=== PATIENT | female | born 1970 | race African-American/Black ===

== ENCOUNTER 2018-01-29 05:43 | Emergency (ER) | payer SELFPAY ==
[2018-01-29 06:45] LABS: Absolute Lymphocytes (CBC) 1.5 K/uL (0.7-4.9); Absolute Monocytes 1.1 K/uL (0.1-1.3); Absolute Neutrophil 8.1 K/uL (1.8-8.0); Basophils % 0.5 % (0-1.3); Eosinophils % 1.7 % (0-4.4); Hematocrit 34.4 % (36.0-45.0); MCH 31.4 pg (27.0-35.0); MCV 92.4 fL (80-100); MPV 8.6 fL (7.6-11.3); Monocytes % 10.3 % (3.3-12.3); RBC Red Blood Cell Count 3.73 M/uL (3.86-4.86)
[2018-01-29 07:11] LABS: Potassium 3.8 mEq/L (3.6-5.0)
[2018-01-29 07:17] LABS: Albumin 3.8 g/dL (3.2-5.5); Bilirubin Direct 0.1 mg/dL (0-0.2); Bilirubin Total 0.4 mg/dL (0.3-1.2); Protein, Total 7.2 g/dL (6.0-8.3)
--- NOTE | 2018-01-29 07:31 | EDPHYS ---
Physician Documentation [facility] Name: Shanelle Goldstein Age: 47 yrs Sex: Female : 1970 Arrival Date: 01/29/2018 Time: 05:49 Bed 15 Private MD: ED Physician Natalio Membreno HPI: 01/29 06:22 This 47 yrs old Black Female presents to ER via Ambulatory with complaints of Rash, cp Weakness. 06:22 The patient's rash thought to be caused by an unknown cause. cp 06:22 The rash is located on the chest and neck. The rash can be described as itchy. cp 06:22 Onset: The symptoms/episode began/occurred 1 week(s) ago. cp 06:22 Associated signs and symptoms: Pertinent positives: fatigue, dizziness since yesterday, cp Pertinent negatives: difficulty breathing, fever, chest pain, abdominal pain. Treatment given at home: none. 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 - Social history:: Smoking status: Patient uses tobacco products, denies chronic smoking, but will smoke occasionally. ROS: 06:30 Constitutional: Positive for fatigue, Negative for body aches, chills, fever, poor PO cp intake. 06:30 Eyes: Negative for injury, pain, redness, and discharge. cp 06:30 ENT: Negative for drainage from ear(s), ear pain, sore throat, difficulty swallowing, difficulty handling secretions. 06:30 Cardiovascular: Negative for chest pain, edema, palpitations. 06:30 Respiratory: Positive for shortness of breath, Negative for cough, wheezing. 06:30 Abdomen/GI: Negative for abdominal pain, nausea, vomiting, and diarrhea, constipation, black/tarry stool, rectal bleeding. 06:30 Skin: Positive for rash, of the chest and neck. 06:30 Neuro: Positive for general weakness, Negative for altered mental status, dizziness, headache, syncope, near syncope. 06:30 All other systems are negative. Exam: 06:35 Constitutional: The patient appears in no acute distress, alert, non-diaphoretic, cp non-toxic, well developed, well nourished. 06:35 Head/Face: Normocephalic, atraumatic. Eyes: Pupils equal round and reactive to light, cp extra-ocular motions intact. Lids and lashes normal. Conjunctiva and sclera are non-icteric and not injected. Cornea within normal limits. Periorbital areas with no swelling, redness, or edema. ENT: Nares patent. No nasal discharge, no septal abnormalities noted. Tympanic membranes are normal and external auditory canals are clear. Oropharynx with no redness, swelling, or masses, exudates, or evidence of obstruction, uvula midline. Mucous membranes moist. 06:35 Chest/axilla: Palpation: is normal, no crepitus, no tenderness. 06:35 Cardiovascular: Rate: normal, Rhythm: regular, Edema: is not appreciated, JVD: is not appreciated. 06:35 Respiratory: the patient does not display signs of respiratory distress, Respirations: normal, no use of accessory muscles, no retractions, labored breathing, is not present, Breath sounds: are clear throughout, no decreased breath sounds, no stridor, no wheezing. 06:35 Abdomen/GI: Inspection: abdomen appears normal, Palpation: abdomen is soft and non-tender, in all quadrants. 06:35 Skin: rash can be described as excoriated, raised, urticarial, on the chest and neck. 06:35 Neuro: Orientation: to person, place \T\ time. Mentation: lucid, able to follow commands, Cerebellar function: is grossly normal, Motor: moves all fours, strength is normal, Sensation: no obvious gross deficits. 06:44 ECG was reviewed by the Attending Physician. cp Vital Signs: 06:03 BP 143 / 90; Pulse 71; Resp 18; Temp 98.1(O); Pulse Ox 100% on R/A; Weight 74.84 kg; bs1 Height 5 ft. 7 in. (170.18 cm); Pain 0/10; 06:53 BP 139 / 98; bs1 07:43 BP 118 / 76; Pulse 67; Resp 15; Temp 97.8; Pulse Ox 99% on R/A; Pain 0/10; ch 06:03 Body Mass Index 25.84 (74.84 kg, 170.18 cm) bs1 MDM: 06:17 Patient medically screened. cp 06:30 Differential diagnosis: allergic reaction, contact dermatitis, anemia, cardiac cp arrythmia, electrolyte abnormality. 07:27 Data reviewed: vital signs, nurses notes, lab test result(s), EKG, and as a result, I cp will discharge patient. 07:28 Counseling: I had a detailed discussion with the patient and/or guardian regarding: the cp historical points, exam findings, and any diagnostic results supporting the discharge/admit diagnosis, lab results, the need for outpatient follow up, a family practitioner, to return to the emergency department if symptoms worsen or persist or if there are any questions or concerns that arise at home. 01/29 06:26 Order name: CBC with Diff; Complete Time: 07:06 cp 01/29 07:07 Interpretation: Normal except: WBC 11.1; RBC 3.73; HGB 11.7; HCT 34.4; RDW 16.6; LYM% cp 14.0; NEUT A 8.1. 01/29 06:26 Order name: LFT's; Complete Time: 07:27 cp 01/29 07:27 Interpretation: Within normal limits. cp 01/29 06:26 Order name: BMP; Complete Time: 07:27 cp 01/29 07:27 Interpretation: Normal except: NA 134; GFR 89. cp 01/29 06:47 Order name: Urine Dipstick--Ancillary (enter results) [facility] [place] 01/29 06:47 Order name: Urine --Ancillary (enter results) [facility] [place] 01/29 06:26 Order name: Urine Dipstick-Ancillary (obtain specimen); Complete Time: 06:44 cp 01/29 06:26 Order name: Urine Test (obtain specimen); Complete Time: 06:44 cp 01/29 06:26 Order name: EKG; Complete Time: 06:26 cp 01/29 06:26 Order name: EKG - Nurse/Tech; Complete Time: 06:44 cp EC:44 Rate is 67 beats/min. Rhythm is regular. VA interval is normal. QRS interval is normal. cp QT interval is normal. No ST changes noted. Interpreted by me. Administered Medications: 07:42 Drug: predniSONE 40 mg Route: PO; 07:42 Follow up: Response: No adverse reaction Disposition: 01/29/18 07:30 Discharged to Home. Impression: Allergic urticaria, Weakness - General. - Condition is Stable. - Discharge Instructions: Hives. - Prescriptions for Prednisone 20 mg Oral Tablet - take 2 tablet by ORAL route once daily for 5 days; 10 tablet. Triamcinolone Acetonide 0.5 % Topical Cream - apply 1 application by TOPICAL route 2 times per day As needed apply to areas of rash as directed; 30 gram. Zyrtec 10 mg Oral Tablet - take 1 tablet by ORAL route once daily As needed; 20 tablet. - Work release form, Medication Reconciliation Form, Thank You Letter, Antibiotic Education, Prescription Opioid Use form. - Follow up: Private Physician; When: 1 - 2 days; Reason: Recheck today's complaints. - Problem is new. - Symptoms are unchanged. Addendum: 02/02/2018 19:02 Co-signature as Attending Physician, Natalio werner Signatures: Dispatcher [employer] Marcia Hodges, RN RN Natalio Blunt MD MD pkl Dustin Paulson PA PA cp Salazar, Brittany, RN RN bs1 Corrections: (The following items were deleted from the chart) 01/29 07:49 07:30 01/29/2018 07:30 Discharged to Home. Impression: Allergic urticaria; Weakness - ch General. Condition is Stable. Forms are Medication Reconciliation Form, Thank You Letter, Antibiotic Education, Prescription Opioid Use. Follow up: Private Physician; When: 1 - 2 days; Reason: Recheck today's complaints. Problem is new. Symptoms are unchanged. cp
--- NOTE | 2018-01-29 07:31 | ER ---
Nurse's Notes [facility] Name: Shanelle Goldstein Age: 47 yrs Sex: Female : 1970 Arrival Date: 01/29/2018 Time: 05:49 Bed 15 Private MD: Diagnosis: Allergic urticaria;Weakness-General Presentation: 01/29 06:00 Presenting complaint: Patient states: "I have been feeling dizzy and fatigued since bs1 yesterday around 2pm and feeling short of breath, I have had this rash on my neck, face, back and stomach for about a week.". Transition of care: patient was not received from another setting of care. Initial Sepsis Screen: Does the patient meet any 2 criteria? No. Patient's initial sepsis screen is negative. Does the patient have a suspected source of infection? No. Patient's initial sepsis screen is negative. Care prior to arrival: None. 06:00 Method Of Arrival: Ambulatory bs1 06:00 Acuity: MOE 3 bs1 06:37 Onset of symptoms was January 28, 2018. 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 - Social history:: Smoking status: Patient uses tobacco products, denies chronic smoking, but will smoke occasionally. Screenin:04 Abuse screen: Denies threats or abuse. Denies injuries from another. Nutritional bs1 screening: No deficits noted. Tuberculosis screening: No symptoms or risk factors identified. Fall Risk None identified. Assessment: 06:07 General: Appears uncomfortable, ill, slender, Behavior is cooperative, anxious. bs1 General:. Pain: Denies pain. Neuro: Level of Consciousness is awake, alert, obeys commands, Oriented to person, place, time, situation, Appropriate for age Student Development Advisor are equal bilaterally Moves all extremities. Gait is steady, Speech is normal, Facial symmetry appears normal, Pupils are PERRLA, Intact Reports dizziness, Denies blurred vision difficulty swallowing, paresthesias numbness headache photophobia diplopia. Cardiovascular: Reports fatigue, shortness of breath, Denies chest pain, Heart tones S1 S2 present Capillary refill < 3 seconds Patient's skin is warm and dry. Respiratory: Airway is patent Trachea midline Respiratory effort is even, unlabored, Respiratory pattern is regular, symmetrical, Breath sounds are clear bilaterally. Respiratory: Reports shortness of breath at rest on exertion cough that is non-productive. GI: No deficits noted. No signs and/or symptoms were reported involving the gastrointestinal system. : No deficits noted. No signs and/or symptoms were reported regarding the genitourinary system. EENT: No deficits noted. No signs and/or symptoms were reported regarding the EENT system. Derm: Rash noted that is urticaria, generealized to face, neck, back, stomach. Musculoskeletal: Circulation, motion, and sensation intact. Capillary refill < 3 seconds, Range of motion: intact in all extremities. 07:42 Reassessment: Patient appears in no apparent distress at this time. Patient and/or ch family updated on plan of care and expected duration. Pain level reassessed. Patient is alert, oriented x 3, equal unlabored respirations, skin warm/dry/pink. Vital Signs: 06:03 BP 143 / 90; Pulse 71; Resp 18; Temp 98.1(O); Pulse Ox 100% on R/A; Weight 74.84 kg; bs1 Height 5 ft. 7 in. (170.18 cm); Pain 0/10; 06:53 BP 139 / 98; bs1 07:43 BP 118 / 76; Pulse 67; Resp 15; Temp 97.8; Pulse Ox 99% on R/A; Pain 0/10; ch 06:03 Body Mass Index 25.84 (74.84 kg, 170.18 cm) bs1 ED Course: 05:49 Patient arrived in ED. al2 06:00 Adrianne Goff, STEVEN is Primary Nurse. bs1 06:02 Triage completed. bs1 06:09 Patient has correct armband on for positive identification. Bed in low position. Call bs1 light in reach. Side rails up X 1. Pulse ox on. NIBP on. 06:10 No provider procedures requiring assistance completed. bs1 06:15 Dustin Paulson PA is PHCP. cp 06:15 Natalio Membreno MD is Attending Physician. cp 06:31 Inserted saline lock: 22 gauge in right antecubital area, using aseptic technique. bs1 06:52 Arm band placed on placed. EKG completed in triage. Results shown to MD. bs1 06:53 Warm blanket given. bs1 07:02 Report given to STEVEN Contreras. bs1 07:43 No apparent distress. Resting quietly. ch 07:43 IV discontinued, intact, bleeding controlled, No redness/swelling at site. Pressure ch dressing applied. Administered Medications: 07:42 Drug: predniSONE 40 mg Route: PO; 07:42 Follow up: Response: No adverse reaction ch Outcome: 07:30 Discharge ordered by MD. 07:43 Discharged to home ambulatory. 07:43 Condition: improved 07:43 Discharge instructions given to patient, Instructed on discharge instructions, follow up and referral plans. medication usage, Demonstrated understanding of instructions, follow-up care, medications, Prescriptions given X 3. 07:49 Patient left the ED. Signatures: Marcia Ocampo RN RN Dustin Paulson PA PA Adrianne Goff RN RN bs1 Mari Schilling
[2018-01-29] MEDS ORDERED: predniSONE 20 MG TAB ONE (07:37)
[2018-01-29 12:14] LABS: Urine Blood TRACE (NEG); Urine Glucose NEGATIVE (NEG); Urine Protein NEGATIVE (NEG); Urine pH 5.5 (5.0-7.0)
--- NOTE | 2018-01-29 14:38 | EKG ---
Test Date: 2018-01-29 Test Time: 06:38:10 Electrophonic Engineer: RAD MEASUREMENT RESULTS: Intervals: Rate: 67 RI: 152 QRSD: 78 QT: 384 QTc: 405 Monument: P: 54 RI: 152 QRS: 56 T: 55 INTERPRETIVE STATEMENTS: Normal sinus rhythm Normal ECG No previous ECG available for comparison Electronically Signed On 01-29-18 14:34:12 CDT by Nitish Fallon
== END 2018-01-29 07:49 | disposition home or self-care (01) ==
LOC: ER 05:43
DX: L50.0 Allergic urticaria (principal); R53.1 Weakness; I10 Essential (primary) hypertension; F41.9 Anxiety disorder, unspecified
CPT/HCPCS: 36415; 80048; 80076; 81003; 81025; 85025; 93005; 99284; J7512

== ENCOUNTER 2018-03-07 05:24 | Emergency (ER) | payer SELFPAY ==
[2018-03-07] MEDS ORDERED: predniSONE 20 MG TAB ONE (05:49)
[2018-03-07] MEDS ORDERED: DIPHENHYDRAMINE 25 MG TAB/CAP ONE (05:49)
[2018-03-07] MEDS ORDERED: FAMOTIDINE 20 MG TAB ONE (05:49)
--- NOTE | 2018-03-07 06:01 | ER ---
Nurse's Notes [facility] Name: Shanelle Goldstein Age: 47 yrs Sex: Female : 1970 Arrival Date: 03/07/2018 Time: 05:26 Bed 6 Private MD: Diagnosis: Urticaria Presentation: 03/07 05:34 Presenting complaint: Patient states: I woke up a couple hours ago with itching and tl2 bumps on my skin. Denies any new usage of lotions or soaps or exposure to grasses. Transition of care: patient was not received from another setting of care. Onset: The symptoms/episode began/occurred acutely, 2 hour(s) ago. Anaphylaxis evaluation, no signs or symptoms of anaphylaxis were noted. Onset of symptoms was March 07, 2018 at 03:30. Risk Assessment: Do you want to hurt yourself or someone else? Patient reports no desire to harm self or others. Initial Sepsis Screen: Does the patient meet any 2 criteria? No. Patient's initial sepsis screen is negative. Does the patient have a suspected source of infection? No. Patient's initial sepsis screen is negative. Care prior to arrival: None. 05:34 Method Of Arrival: Ambulatory tl2 05:34 Acuity: MOE 4 tl2 Triage Assessment: 05:36 General: Appears in no apparent distress. uncomfortable, Behavior is cooperative, tl2 appropriate for age, anxious. Pain: Complains of pain in skin. Neuro: Level of Consciousness is awake, alert, obeys commands, Oriented to person, place, time, situation. Cardiovascular: Denies chest pain. Respiratory: Airway is patent Respiratory effort is even, unlabored, Respiratory pattern is regular, symmetrical, Breath sounds are clear bilaterally. GI: No signs and/or symptoms were reported involving the gastrointestinal system. : No signs and/or symptoms were reported regarding the genitourinary system. Derm: Skin is normal, Rash noted that is itchy, red, raised, on right arm, left arm, right leg and left leg. 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 - Social history:: Smoking status: Patient uses tobacco products, smokes one-half pack cigarettes per day. - Ebola Screening: : No symptoms or risks identified at this time. - Family history:: not pertinent. Screenin:38 Abuse screen: Denies threats or abuse. Nutritional screening: No deficits noted. tl2 Tuberculosis screening: No symptoms or risk factors identified. Fall Risk None identified. Assessment: 05:38 General: see triage assessment. Respiratory: Airway is patent Respiratory effort is tl2 even, unlabored, Respiratory pattern is regular, symmetrical. 06:42 Reassessment: Patient appears in no apparent distress at this time. Patient and/or tl2 family updated on plan of care and expected duration. Pain level reassessed. Patient is alert, oriented x 3, equal unlabored respirations, skin warm/dry/pink. Pt verbalized understanding of discharge instructions, need for follow up and prescription usage Patient states feeling better. Vital Signs: 05:36 BP 145 / 97; Pulse 81; Resp 20; Temp 98.1(O); Pulse Ox 99% on R/A; Weight 72.57 kg; tl2 Height 5 ft. 7 in. (170.18 cm); Pain 6/10; 06:42 BP 139 / 91; Pulse 56; Resp 18; Pulse Ox 100% on R/A; tl2 05:36 Body Mass Index 25.06 (72.57 kg, 170.18 cm) tl2 ED Course: 05:26 Patient arrived in ED. es 05:30 Dustin Campbell MD is Attending Physician. cosmo 05:34 Julia Guzman, STEVEN is Primary Nurse. tl2 05:35 Triage completed. tl2 05:36 Arm band placed on right wrist. Patient placed in an exam room. tl2 05:38 Patient has correct armband on for positive identification. Placed in gown. Bed in low tl2 position. Call light in reach. Side rails up X 1. Adult w/ patient. 06:45 No provider procedures requiring assistance completed. Patient did not have IV access tl2 during this emergency room visit. Administered Medications: 05:52 Drug: Benadryl 50 mg Route: PO; tl2 06:45 Follow up: Response: No adverse reaction; Marked relief of symptoms tl2 05:52 Drug: Pepcid 40 mg Route: PO; tl2 06:45 Follow up: Response: No adverse reaction; Marked relief of symptoms tl2 05:52 Drug: predniSONE 60 mg Route: PO; tl2 06:45 Follow up: Response: No adverse reaction; Marked relief of symptoms tl2 Outcome: 06:00 Discharge ordered by MD. wilburn 06:45 Discharged to home ambulatory, with family. tl2 06:45 Condition: stable 06:45 Discharge instructions given to patient, family, Instructed on discharge instructions, follow up and referral plans. medication usage, Demonstrated understanding of instructions, follow-up care, medications, Prescriptions given X 3. 06:45 Patient left the ED. tl2 Signatures: Dustin Campbell MD MD cha Salyer, Edna es Knox, Taylor, RN RN tl2
--- NOTE | 2018-03-07 06:01 | EDPHYS ---
Physician Documentation [facility] Name: Shanelle Goldstein Age: 47 yrs Sex: Female : 1970 Arrival Date: 03/07/2018 Time: 05:26 Bed 6 Private MD: ED Physician Dustin Campbell HPI: 03/07 05:47 This 47 yrs old Black Female presents to ER via Ambulatory with complaints of Itching. cosmo 05:47 The patient presents with localized swelling, rash. Onset: The symptoms/episode cosmo began/occurred just prior to arrival, this morning. Associated signs and symptoms: The patient has no apparent associated signs or symptoms. Possible causes: The patient has no known obvious cause for the symptoms. diffuse, hives. At home the patient or guardian has treated the symptoms with Benadryl. Severity of symptoms: At their worst the symptoms were mild in the emergency department the symptoms are unchanged. The patient has not experienced similar symptoms in the past. 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 - Social history:: Smoking status: Patient uses tobacco products, smokes one-half pack cigarettes per day. - Ebola Screening: : No symptoms or risks identified at this time. - Family history:: not pertinent. ROS: 05:47 Constitutional: Negative for fever, chills, and weight loss, Eyes: Negative for injury, cosmo pain, redness, and discharge, ENT: Negative for injury, pain, and discharge, Neck: Negative for injury, pain, and swelling, Cardiovascular: Negative for chest pain, palpitations, and edema, Respiratory: Negative for shortness of breath, cough, wheezing, and pleuritic chest pain, Abdomen/GI: Negative for abdominal pain, nausea, vomiting, diarrhea, and constipation, Back: Negative for injury and pain, : Negative for injury, bleeding, discharge, and swelling, MS/Extremity: Negative for injury and deformity, Neuro: Negative for headache, weakness, numbness, tingling, and seizure, Psych: Negative for depression, anxiety, suicide ideation, homicidal ideation, and hallucinations, Allergy/Immunology: Negative for hives, rash, and allergies, Endocrine: Negative for neck swelling, polydipsia, polyuria, polyphagia, and marked weight changes. 05:47 Skin: Positive for erythema, rash, diffusely. Exam: 05:47 Constitutional: This is a well developed, well nourished patient who is awake, alert, cosmo and in no acute distress. Head/Face: Normocephalic, atraumatic. Eyes: Pupils equal round and reactive to light, extra-ocular motions intact. Lids and lashes normal. Conjunctiva and sclera are non-icteric and not injected. Cornea within normal limits. Periorbital areas with no swelling, redness, or edema. ENT: Nares patent. No nasal discharge, no septal abnormalities noted. Tympanic membranes are normal and external auditory canals are clear. Oropharynx with no redness, swelling, or masses, exudates, or evidence of obstruction, uvula midline. Mucous membranes moist. Neck: Trachea midline, no thyromegaly or masses palpated, and no cervical lymphadenopathy. Supple, full range of motion without nuchal rigidity, or vertebral point tenderness. No Meningismus. Chest/axilla: Normal chest wall appearance and motion. Nontender with no deformity. No lesions are appreciated. Cardiovascular: Regular rate and rhythm with a normal S1 and S2. No gallops, murmurs, or rubs. Normal PMI, no JVD. No pulse deficits. Respiratory: Lungs have equal breath sounds bilaterally, clear to auscultation and percussion. No rales, rhonchi or wheezes noted. No increased work of breathing, no retractions or nasal flaring. Abdomen/GI: Soft, non-tender, with normal bowel sounds. No distension or tympany. No guarding or rebound. No evidence of tenderness throughout. Back: No spinal tenderness. No costovertebral tenderness. Full range of motion. Pelvic Exam: Normal external genitalia. Speculum exam with closed cervical os, no discharge or bleeding noted. Bimanual exam with normal adnexa, no adnexal or cervical motion tenderness. Normal uterus. Female : Normal external genitalia. Skin: Warm, dry with normal turgor. Normal color with no rashes, no lesions, and no evidence of cellulitis. MS/ Extremity: Pulses equal, no cyanosis. Neurovascular intact. Full, normal range of motion. Neuro: Awake and alert, GCS 15, oriented to person, place, time, and situation. Cranial nerves II-XII grossly intact. Motor strength 5/5 in all extremities. Sensory grossly intact. Cerebellar exam normal. Normal gait. Vital Signs: 05:36 BP 145 / 97; Pulse 81; Resp 20; Temp 98.1(O); Pulse Ox 99% on R/A; Weight 72.57 kg; tl2 Height 5 ft. 7 in. (170.18 cm); Pain 6/10; 06:42 BP 139 / 91; Pulse 56; Resp 18; Pulse Ox 100% on R/A; tl2 05:36 Body Mass Index 25.06 (72.57 kg, 170.18 cm) tl2 MDM: 05:30 Patient medically screened. [facility] 05:47 Data reviewed: vital signs, nurses notes. [facility] Administered Medications: 05:52 Drug: Benadryl 50 mg Route: PO; tl2 06:45 Follow up: Response: No adverse reaction; Marked relief of symptoms tl2 05:52 Drug: Pepcid 40 mg Route: PO; tl2 06:45 Follow up: Response: No adverse reaction; Marked relief of symptoms tl2 05:52 Drug: predniSONE 60 mg Route: PO; tl2 06:45 Follow up: Response: No adverse reaction; Marked relief of symptoms tl2 Disposition: 03/07/18 06:00 Discharged to Home. Impression: Urticaria. - Condition is Stable. - Discharge Instructions: Allergies, Hives, Hives, Jydj-sr-Lyat. - Prescriptions for Benadryl 25 mg Oral Capsule - take 1 capsule by ORAL route every 6 hours As needed; 30 tablet. Pepcid 20 mg Oral Tablet - take 1 tablet by ORAL route every 12 hours for 10 days; 20 tablet. Prednisone 20 mg Oral Tablet - take 2 tablet by ORAL route once daily for 5 days; 10 tablet. - Medication Reconciliation Form, Thank You Letter, Antibiotic Education, Prescription Opioid Use, Work release form, Family Work Release form. - Follow up: Private Physician; When: 2 - 3 days; Reason: Recheck today's complaints, Continuance of care, Re-evaluation by your physician. - Problem is new. - Symptoms have improved. Signatures: Dustin Cmapbell MD MD cha Knox, Taylor RN RN tl2 Corrections: (The following items were deleted from the chart) 06:45 06:00 03/07/2018 06:00 Discharged to Home. Impression: Urticaria. Condition is Stable. tl2 Forms are Medication Reconciliation Form, Thank You Letter, Antibiotic Education, Prescription Opioid Use. Follow up: Private Physician; When: 2 - 3 days; Reason: Recheck today's complaints, Continuance of care, Re-evaluation by your physician. Problem is new. Symptoms have improved. cosmo
== END 2018-03-07 06:45 | disposition home or self-care (01) ==
LOC: ER 05:24
DX: L50.9 Urticaria, unspecified (principal); I10 Essential (primary) hypertension; F41.9 Anxiety disorder, unspecified; F17.210 Nicotine dependence, cigarettes, uncomplicated
CPT/HCPCS: 99283; J7512

== ENCOUNTER 2018-03-09 05:32 | Emergency (ER) | payer SELFPAY ==
[2018-03-09] MEDS ORDERED: DIPHENHYDRAMINE 50 MG/ML VIAL ONE (05:54)
[2018-03-09] MEDS ORDERED: METHYLPREDNISOLONE 125 MG INJ ONE (05:54)
--- NOTE | 2018-03-09 06:37 | ER ---
Nurse's Notes [facility] Name: Shanelle Goldstein Age: 47 yrs Sex: Female : 1970 Arrival Date: 03/09/2018 Time: 05:33 Bed 13 Private MD: Diagnosis: Urticaria, unspecified Presentation: 03/09 05:49 Presenting complaint: Patient states: "I am having this generalized itching all over my [facility] body. I don't know if it is an allergic reaction or what, but I haven't changed anything in my diet, and last time I was here with this a couple of days ago they said it was probably a food allergy.". Transition of care: patient was not received from another setting of care. Onset: The symptoms/episode began/occurred last night. Anaphylaxis evaluation, no signs or symptoms of anaphylaxis were noted. Onset of symptoms was March 08, 2018. Risk Assessment: Do you want to hurt yourself or someone else? Patient reports no desire to harm self or others. Initial Sepsis Screen: Does the patient meet any 2 criteria? No. Patient's initial sepsis screen is negative. Does the patient have a suspected source of infection? No. Patient's initial sepsis screen is negative. Care prior to arrival: None. 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 - Social history:: Smoking status: Patient uses tobacco products, smokes one-half pack cigarettes per day, Patient uses alcohol, only on a social basis. - Ebola Screening: : Patient negative for fever greater than or equal to 101.5 degrees Fahrenheit, and additional compatible Ebola Virus Disease symptoms. - Family history:: not pertinent. - Hospitalizations: : No recent hospitalization is reported. Screenin:01 Abuse screen: Denies threats or abuse. Nutritional screening: No deficits noted. jd3 Tuberculosis screening: No symptoms or risk factors identified. Fall Risk Gait- Normal/Bed Rest/Wheelchair (0 pts) Mental Status- Oriented to own ability (0 pts). Total Newby Fall Scale indicates No Risk (0-24 pts). Assessment: 05:57 General: Appears uncomfortable, Behavior is cooperative, appropriate for age, anxious. jd3 Pain: Complains of pain in back, abdomen, right arm, left arm, right leg and left leg Quality of pain is described as burning, stinging, Pain began 1 day ago. Is continuous. Neuro: Level of Consciousness is awake, alert, obeys commands, Oriented to person, place, time, situation. Cardiovascular: Heart tones S1 S2 present Capillary refill < 3 seconds Patient's skin is warm and dry. Respiratory: Airway is patent Respiratory effort is even, unlabored, Respiratory pattern is regular, symmetrical, Breath sounds are clear bilaterally. Denies shortness of breath. GI: Abdomen is round Bowel sounds present X 4 quads. Abd is soft and non tender X 4 quads. : No signs and/or symptoms were reported regarding the genitourinary system. EENT: No signs and/or symptoms were reported regarding the EENT system. Derm: Skin is intact, Skin is dry, Skin is normal, Skin temperature is warm Rash noted that is itchy, on generalized. Musculoskeletal: Circulation, motion, and sensation intact. Range of motion: intact in all extremities. 06:27 Reassessment: Patient appears in no apparent distress at this time. Patient and/or jd3 family updated on plan of care and expected duration. Pain level reassessed. Patient is alert, oriented x 3, equal unlabored respirations, skin warm/dry/pink. Patient states feeling better. Patient states symptoms have improved. 06:43 Reassessment: Patient appears in no apparent distress at this time. Patient and/or jd3 family updated on plan of care and expected duration. Pain level reassessed. Patient is alert, oriented x 3, equal unlabored respirations, skin warm/dry/pink. pt reported understanding of discharge instructions, even and steady gait upon discharge. Patient states feeling better. Patient states symptoms have improved. Vital Signs: 05:54 BP 128 / 95; Pulse 83; Resp 17 S; Temp 98.4(O); Pulse Ox 97% on R/A; Weight 72.57 kg jd3 (R); Height 5 ft. 7 in. (170.18 cm) (R); Pain 10/10; 06:28 BP 131 / 97; Pulse 72; Resp 18 S; Pulse Ox 99% on R/A; Pain 2/10; jd3 05:54 Body Mass Index 25.06 (72.57 kg, 170.18 cm) jd3 ED Course: 05:33 Patient arrived in ED. am2 05:40 Valentin Otto MD is Attending Physician. rn 05:48 Robert Garcia, STEVEN is Primary Nurse. jd3 05:53 Triage completed. jd3 05:56 Arm band placed on Patient placed in an exam room. jd3 06:01 Patient has correct armband on for positive identification. Bed in low position. Call jd3 light in reach. Side rails up X 1. 06:44 No provider procedures requiring assistance completed. Patient did not have IV access jd3 during this emergency room visit. Administered Medications: 05:57 Drug: SOLU-Medrol 125 mg Route: IM; Site: right gluteus; bs1 06:45 Follow up: Response: No adverse reaction; Marked relief of symptoms jd3 05:57 Drug: Benadryl 50 mg Route: IM; Site: right gluteus; bs1 06:45 Follow up: Response: No adverse reaction; Marked relief of symptoms jd3 Outcome: 06:36 Discharge ordered by . rn 06:44 Discharged to home ambulatory. jd3 06:44 Condition: stable 06:44 Discharge instructions given to patient, Instructed on discharge instructions, follow up and referral plans. medication usage, Demonstrated understanding of instructions, follow-up care, medications, Prescriptions given X 1. 06:46 Patient left the ED. jd3 Signatures: Valentin Otto MD MD rn Moreno, Amanda am2 Robert Garcia, RN RN jd3 Adrianne Goff RN RN bs1 Corrections: (The following items were deleted from the chart) 06:34 06:28 BP 131 / 97; Pulse 72bpm; Resp 18bpm; Spontaneous; Pulse Ox 99% RA; jd3 jd3 06:35 06:27 Reassessment: Patient appears in no apparent distress at this time. Patient jd3 and/or family updated on plan of care and expected duration. Pain level reassessed. Patient is alert, oriented x 3, equal unlabored respirations, skin warm/dry/pink. jd3
--- NOTE | 2018-03-09 06:37 | EDPHYS ---
Physician Documentation [facility] Name: Shanelle Goldstein Age: 47 yrs Sex: Female : 1970 Arrival Date: 03/09/2018 Time: 05:33 Bed 13 Private MD: ED Physician Valentin Otto HPI: 03/09 05:53 This 47 yrs old Black Female presents to ER via Ambulatory with complaints of Allergic rn Reaction. 05:53 The patient presents with itching, rash. Onset: The symptoms/episode began/occurred 3 rn day(s) ago. Associated signs and symptoms: Pertinent positives: hives. Severity of symptoms: At their worst the symptoms were moderate in the emergency department the symptoms are unchanged. The patient has not experienced similar symptoms in the past. The patient has been recently seen by a physician:. Seen here 2 days ago for same rash, states told allergic reaction, improved, almost went away completely, came back today with itching again and rash. No sob, no oral involvement. . 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 - Social history:: Smoking status: Patient uses tobacco products, smokes one-half pack cigarettes per day, Patient uses alcohol, only on a social basis. - Ebola Screening: : Patient negative for fever greater than or equal to 101.5 degrees Fahrenheit, and additional compatible Ebola Virus Disease symptoms. - Family history:: not pertinent. - Hospitalizations: : No recent hospitalization is reported. ROS: 05:53 Constitutional: Negative for fever, chills, and weight loss, Eyes: Negative for injury, rn pain, redness, and discharge, Cardiovascular: Negative for chest pain, palpitations, and edema, Respiratory: Negative for shortness of breath, cough, wheezing, and pleuritic chest pain, Abdomen/GI: Negative for abdominal pain, nausea, vomiting, diarrhea, and constipation, MS/Extremity: Negative for injury and deformity, Skin: + rash and itching Neuro: Negative for headache, weakness, numbness, tingling, and seizure. Exam: 05:53 Constitutional: This is a well developed, well nourished patient who is awake, alert, rn and in no acute distress. Head/Face: Normocephalic, atraumatic. Eyes: Pupils equal round and reactive to light, extra-ocular motions intact. Lids and lashes normal. Conjunctiva and sclera are non-icteric and not injected. Cornea within normal limits. Periorbital areas with no swelling, redness, or edema. ENT: no oral lesions Respiratory: Lungs have equal breath sounds bilaterally, clear to auscultation and percussion. No rales, rhonchi or wheezes noted. No increased work of breathing, no retractions or nasal flaring. Skin: + diffuse urticaria and excoriations, no sloughing, no bullae MS/ Extremity: Pulses equal, no cyanosis. Neurovascular intact. Full, normal range of motion. Equal circumference. Neuro: Awake and alert, GCS 15, oriented to person, place, time, and situation. Cranial nerves II-XII grossly intact. Motor strength 5/5 in all extremities. Sensory grossly intact. Cerebellar exam normal. Normal gait. Vital Signs: 05:54 BP 128 / 95; Pulse 83; Resp 17 S; Temp 98.4(O); Pulse Ox 97% on R/A; Weight 72.57 kg jd3 (R); Height 5 ft. 7 in. (170.18 cm) (R); Pain 10/10; 06:28 BP 131 / 97; Pulse 72; Resp 18 S; Pulse Ox 99% on R/A; Pain 2/10; jd3 05:54 Body Mass Index 25.06 (72.57 kg, 170.18 cm) jd3 MDM: 05:40 Patient medically screened. rn 06:36 Differential diagnosis: urticaria. Data reviewed: vital signs, nurses notes, and as a rn result, I will discharge patient. Counseling: I had a detailed discussion with the patient and/or guardian regarding: the historical points, exam findings, and any diagnostic results supporting the discharge/admit diagnosis, the need for outpatient follow up, to return to the emergency department if symptoms worsen or persist or if there are any questions or concerns that arise at home. Response to treatment: the patient's symptoms have markedly improved after treatment, and as a result, I will discharge patient. Special discussion: I discussed with the patient/guardian in detail that at this point there is no indication for admission to the hospital. It is understood, however, that if the symptoms persist or worsen the patient needs to return immediately for re-evaluation. Based on the history and exam findings, there is no indication for further emergent testing or inpatient evaluation. I discussed with the patient/guardian the need to see the engine lathe tender for further evaluation of the symptoms. Administered Medications: 05:57 Drug: SOLU-Medrol 125 mg Route: IM; Site: right gluteus; bs1 06:45 Follow up: Response: No adverse reaction; Marked relief of symptoms jd3 05:57 Drug: Benadryl 50 mg Route: IM; Site: right gluteus; bs1 06:45 Follow up: Response: No adverse reaction; Marked relief of symptoms jd3 Disposition: 03/09/18 06:36 Discharged to Home. Impression: Urticaria, unspecified. - Condition is Stable. - Discharge Instructions: Hives. - Prescriptions for Hydroxyzine HCl 50 mg Oral Tablet - take 1 tablet by ORAL route every 8 hours As needed; 20 tablet. - Medication Reconciliation Form, Thank You Letter, Antibiotic Education, Prescription Opioid Use, Work release form form. - Follow up: Private Physician; When: As needed; Reason: Recheck today's complaints, Re-evaluation by your physician. - Problem is new. - Symptoms have improved. Signatures: Valentin Otto MD MD rn Davies, Jonathon, RN RN jd3 Adrianne Goff RN RN bs1 Corrections: (The following items were deleted from the chart) 06:46 06:36 03/09/2018 06:36 Discharged to Home. Impression: Urticaria, unspecified. jd3 Condition is Stable. Forms are Medication Reconciliation Form, Thank You Letter, Antibiotic Education, Prescription Opioid Use. Follow up: Private Physician; When: As needed; Reason: Recheck today's complaints, Re-evaluation by your physician. Problem is new. Symptoms have improved. rn
== END 2018-03-09 06:46 | disposition home or self-care (01) ==
LOC: ER 05:32
DX: L50.9 Urticaria, unspecified (principal); F17.210 Nicotine dependence, cigarettes, uncomplicated
CPT/HCPCS: 96372; 99283; J2930

== ENCOUNTER 2018-03-18 20:47 | Emergency (ER) | payer SELFPAY ==
--- NOTE | 2018-03-18 21:21 | EDPHYS ---
Physician Documentation [facility] Name: Shanelle Goldstein Age: 47 yrs Sex: Female : 1970 Arrival Date: 03/18/2018 Time: 20:47 Bed 14 Private MD: ED Physician Dustin Campbell HPI: 03/18 21:11 This 47 yrs old Black Female presents to ER via Ambulatory with complaints of Rash - cosmo Burning-Pain. 21:11 The patient's rash thought to be caused by allergies, Dermatitis. The rash is located cosmo on the body diffusely. The rash can be described as erythematous, raised. Onset: The symptoms/episode began/occurred just prior to arrival. Associated signs and symptoms: Pertinent positives: burning sensation. Severity of symptoms: At their worst the symptoms were mild in the emergency department the symptoms are unchanged. 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 - Social history:: Smoking status: Patient uses tobacco products, smokes one-half pack cigarettes per day. - Ebola Screening: : No symptoms or risks identified at this time. - Family history:: not pertinent. ROS: 21:11 Constitutional: Negative for fever, chills, and weight loss, Eyes: Negative for injury, cosmo pain, redness, and discharge, ENT: Negative for injury, pain, and discharge, Neck: Negative for injury, pain, and swelling, Cardiovascular: Negative for chest pain, palpitations, and edema, Respiratory: Negative for shortness of breath, cough, wheezing, and pleuritic chest pain, Abdomen/GI: Negative for abdominal pain, nausea, vomiting, diarrhea, and constipation, Back: Negative for injury and pain, : Negative for injury, bleeding, discharge, and swelling, MS/Extremity: Negative for injury and deformity, Neuro: Negative for headache, weakness, numbness, tingling, and seizure, Psych: Negative for depression, anxiety, suicide ideation, homicidal ideation, and hallucinations, Allergy/Immunology: Negative for hives, rash, and allergies, Endocrine: Negative for neck swelling, polydipsia, polyuria, polyphagia, and marked weight changes, Hematologic/Lymphatic: Negative for swollen nodes, abnormal bleeding, and unusual bruising. 21:11 Skin: Positive for rash, diffusely. Exam: 21:11 Constitutional: This is a well developed, well nourished patient who is awake, alert, cosmo and in no acute distress. Head/Face: Normocephalic, atraumatic. Eyes: Pupils equal round and reactive to light, extra-ocular motions intact. Lids and lashes normal. Conjunctiva and sclera are non-icteric and not injected. Cornea within normal limits. Periorbital areas with no swelling, redness, or edema. ENT: Nares patent. No nasal discharge, no septal abnormalities noted. Tympanic membranes are normal and external auditory canals are clear. Oropharynx with no redness, swelling, or masses, exudates, or evidence of obstruction, uvula midline. Mucous membranes moist. Neck: Trachea midline, no thyromegaly or masses palpated, and no cervical lymphadenopathy. Supple, full range of motion without nuchal rigidity, or vertebral point tenderness. No Meningismus. Chest/axilla: Normal chest wall appearance and motion. Nontender with no deformity. No lesions are appreciated. Cardiovascular: Regular rate and rhythm with a normal S1 and S2. No gallops, murmurs, or rubs. Normal PMI, no JVD. No pulse deficits. Respiratory: Lungs have equal breath sounds bilaterally, clear to auscultation and percussion. No rales, rhonchi or wheezes noted. No increased work of breathing, no retractions or nasal flaring. Abdomen/GI: Soft, non-tender, with normal bowel sounds. No distension or tympany. No guarding or rebound. No evidence of tenderness throughout. Back: No spinal tenderness. No costovertebral tenderness. Full range of motion. MS/ Extremity: Pulses equal, no cyanosis. Neurovascular intact. Full, normal range of motion. Neuro: Awake and alert, GCS 15, oriented to person, place, time, and situation. Cranial nerves II-XII grossly intact. Motor strength 5/5 in all extremities. Sensory grossly intact. Cerebellar exam normal. Normal gait. Psych: Awake, alert, with orientation to person, place and time. Behavior, mood, and affect are within normal limits. 21:11 Skin: 21:11 Skin: urticaria. [facility] Vital Signs: 20:54 BP 137 / 86; Pulse 82; Resp 18; Temp 97.9; Pulse Ox 99% on R/A; Weight 81.65 kg (R); ak1 Height 5 ft. 7 in. (170.18 cm) (R); Pain 10/10; 20:54 Body Mass Index 28.19 (81.65 kg, 170.18 cm) ak1 MDM: 20:49 Patient medically screened. [facility] Administered Medications: 21:26 Drug: Pepcid 40 mg Route: PO; bs1 21:32 Follow up: Response: No adverse reaction bs1 21:26 Drug: predniSONE 60 mg Route: PO; bs1 21:32 Follow up: Response: No adverse reaction 1 21:29 Not Given (Per order from Dr Campbell not to give due to patient smelling of ETOH and bs1 driving herself here with no other ride available.): Benadryl 50 mg PO once Disposition: 03/18/18 21:20 Discharged to Home. Impression: Urticaria. - Condition is Stable. - Discharge Instructions: Allergies, Hives, Alcohol Abuse and Nutrition, Hives, Olkk-pc-Buse, How Much is Too Much Alcohol, Sudx-nw-Enhq. - Prescriptions for Benadryl 25 mg Oral Capsule - take 1 capsule by ORAL route every 6 hours As needed; 30 tablet. Pepcid 20 mg Oral Tablet - take 1 tablet by ORAL route every 12 hours for 10 days; 20 tablet. Prednisone 20 mg Oral Tablet - take 2 tablet by ORAL route once daily for 5 days; 10 tablet. - Medication Reconciliation Form, Thank You Letter, Antibiotic Education, Prescription Opioid Use form. - Follow up: Private Physician; When: 2 - 3 days; Reason: Recheck today's complaints, Continuance of care, Re-evaluation by your physician. - Problem is new. - Symptoms have improved. Signatures: Dustin Campbell MD MD cha Krenek, Amber RN RN ak1 Adrianne Goff RN RN bs1 Corrections: (The following items were deleted from the chart) 21:32 21:20 03/18/2018 21:20 Discharged to Home. Impression: Urticaria. Condition is Stable. bs1 Forms are Medication Reconciliation Form, Thank You Letter, Antibiotic Education, Prescription Opioid Use. Follow up: Private Physician; When: 2 - 3 days; Reason: Recheck today's complaints, Continuance of care, Re-evaluation by your physician. Problem is new. Symptoms have improved. cosmo
--- NOTE | 2018-03-18 21:21 | ER ---
Nurse's Notes [facility] Name: Shanelle Goldstein Age: 47 yrs Sex: Female : 1970 Arrival Date: 03/18/2018 Time: 20:47 Bed 14 Private MD: Diagnosis: Urticaria Presentation: 03/18 20:55 Presenting complaint: Patient states: burning pain with rash "all over body" since 1 ak1 hours [employer]. pt seen in the ER this week for same s/s. Transition of care: patient was not received from another setting of care. Onset of symptoms was March 18, 2018. Risk Assessment: Do you want to hurt yourself or someone else? Patient reports no desire to harm self or others. Initial Sepsis Screen: Does the patient meet any 2 criteria? No. Patient's initial sepsis screen is negative. Does the patient have a suspected source of infection? No. Patient's initial sepsis screen is negative. Note no resp distress noted. Care prior to arrival: None. 20:55 Method Of Arrival: Ambulatory ak1 20:55 Acuity: MOE 4 ak1 Triage Assessment: 20:58 General: Appears in no apparent distress. Behavior is cooperative, Smells of alcohol. 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 - Social history:: Smoking status: Patient uses tobacco products, smokes one-half pack cigarettes per day. - Ebola Screening: : No symptoms or risks identified at this time. - Family history:: not pertinent. Screenin:57 Abuse screen: Denies threats or abuse. Denies injuries from another. Nutritional bs1 screening: No deficits noted. Tuberculosis screening: No symptoms or risk factors identified. Fall Risk None identified. Assessment: 20:56 General: Appears in no apparent distress. uncomfortable, Behavior is calm, cooperative, bs1 appropriate for age, Smells of alcohol, smoke. Pain: Complains of pain in generalized burning pain. Neuro: Level of Consciousness is awake, alert, obeys commands, Oriented to person, place, time, situation, Appropriate for age. Cardiovascular: Denies chest pain, shortness of breath, Heart tones S1 S2 present Capillary refill < 3 seconds Patient's skin is warm and dry. Respiratory: Airway is patent Trachea midline Respiratory effort is even, unlabored, Breath sounds are clear bilaterally. GI: No signs and/or symptoms were reported involving the gastrointestinal system. : No signs and/or symptoms were reported regarding the genitourinary system. EENT: No signs and/or symptoms were reported regarding the EENT system. Derm: Skin is intact, Rash noted that is generalized rash, patient states "I feel like I am on fire.". Musculoskeletal: Circulation, motion, and sensation intact. Capillary refill < 3 seconds, Range of motion: intact in all extremities. 21:25 Reassessment: Patient appears in no apparent distress at this time. Patient and/or bs1 family updated on plan of care and expected duration. Pain level reassessed. Patient is alert, oriented x 3, equal unlabored respirations, skin warm/dry/pink. Vital Signs: 20:54 BP 137 / 86; Pulse 82; Resp 18; Temp 97.9; Pulse Ox 99% on R/A; Weight 81.65 kg (R); ak1 Height 5 ft. 7 in. (170.18 cm) (R); Pain 10/10; 20:54 Body Mass Index 28.19 (81.65 kg, 170.18 cm) ak1 ED Course: 20:47 Patient arrived in ED. ds1 20:49 Dustin Campbell MD is Attending Physician. cosmo 20:49 Adrianne Goff, STEVEN is Primary Nurse. bs1 20:54 Arm band placed on Patient placed in an exam room, on a stretcher, on pulse oximetry, ak1 Patient notified of wait time. 20:58 Triage completed. ak1 20:58 Patient has correct armband on for positive identification. Bed in low position. Call bs1 light in reach. Side rails up X 1. Pulse ox on. NIBP on. 21:30 No provider procedures requiring assistance completed. Patient did not have IV access bs1 during this emergency room visit. Administered Medications: 21:26 Drug: Pepcid 40 mg Route: PO; bs1 21:32 Follow up: Response: No adverse reaction bs1 21:26 Drug: predniSONE 60 mg Route: PO; bs1 21:32 Follow up: Response: No adverse reaction bs1 21:29 Not Given (Per order from Dr Campbell not to give due to patient smelling of ETOH and bs1 driving herself here with no other ride available.): Benadryl 50 mg PO once Outcome: 21:20 Discharge ordered by . cosmo 21:30 Discharged to home ambulatory. bs1 21:30 Condition: stable 21:30 Discharge instructions given to patient, Instructed on discharge instructions, follow up and referral plans. medication usage, Demonstrated understanding of instructions, follow-up care, medications, Prescriptions given X 3, instructed patient to take benadryl when she gets home per verbal order from Dr Campbell. 21:32 Patient left the ED. bs1 Signatures: Dustin Campbell MD MD cha Sanford, Demi ds1 Opal Bass, RN RN ak1 Adrianne Goff RN RN bs1 Corrections: (The following items were deleted from the chart) 21:31 20:56 General: Appears in no apparent distress. uncomfortable, Behavior is calm, bs1 cooperative, appropriate for age, bs1
[2018-03-18] MEDS ORDERED: DIPHENHYDRAMINE 25 MG TAB/CAP ONE (21:23)
[2018-03-18] MEDS ORDERED: FAMOTIDINE 20 MG TAB ONE (21:23)
[2018-03-18] MEDS ORDERED: predniSONE 20 MG TAB ONE (21:23)
== END 2018-03-18 21:32 | disposition home or self-care (01) ==
LOC: ER 20:47
DX: L50.9 Urticaria, unspecified (principal); I10 Essential (primary) hypertension; F17.210 Nicotine dependence, cigarettes, uncomplicated
CPT/HCPCS: 99283; J7512

== ENCOUNTER 2018-04-04 09:49 | Emergency (ER) | payer SELFPAY ==
[2018-04-04] MEDS ORDERED: DIPHENHYDRAMINE 50 MG/ML VIAL ONE (10:28)
[2018-04-04] MEDS ORDERED: METHYLPREDNISOLONE 125 MG INJ ONE (10:28)
--- NOTE | 2018-04-04 10:53 | ER ---
Nurse's Notes [facility] Name: Shanelle Goldstein Age: 47 yrs Sex: Female : 1970 Arrival Date: 04/04/2018 Time: 09:51 Bed 24 Private MD: Diagnosis: Allergic Reaction Presentation: 04/04 10:02 Presenting complaint: Patient states: I noticed a rash and hives that started on sg Sunday, worsening today with burning and itching, pt reports this has happened before and believes she is allergic to something at work, chemicals in the dirt or something, pt denies Shortness of breath, denies difficulty, no medications for treatment of symptoms per patient. Transition of care: patient was not received from another setting of care. Onset: The symptoms/episode began/occurred gradually. Anaphylaxis evaluation, no signs or symptoms of anaphylaxis were noted. Onset of symptoms was April 04, 2018. Risk Assessment: Do you want to hurt yourself or someone else? Patient reports no desire to harm self or others. Initial Sepsis Screen: Does the patient meet any 2 criteria? No. Patient's initial sepsis screen is negative. Does the patient have a suspected source of infection? No. Patient's initial sepsis screen is negative. Care prior to arrival: None. 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 - Social history:: Smoking status: . - Ebola Screening: : Patient negative for fever greater than or equal to 101.5 degrees Fahrenheit, and additional compatible Ebola Virus Disease symptoms Patient denies exposure to infectious person Patient denies travel to an Ebola-affected area in the 21 days before illness onset No symptoms or risks identified at this time. Screenin:20 Abuse screen: Denies threats or abuse. Denies injuries from another. Nutritional ss screening: No deficits noted. Tuberculosis screening: Never had TB. Fall Risk None identified. Assessment: 10:20 General: Appears uncomfortable, Behavior is calm, cooperative, Denies fever, feeling ss ill, fatigue, chills. Pain: Denies pain. Neuro: Level of Consciousness is awake, alert, obeys commands, Oriented to person, place, time, situation, Speech is normal, Facial symmetry appears normal, Pupils are PERRLA. Cardiovascular: Capillary refill < 3 seconds is brisk in bilateral fingers Patient's skin is warm and dry. Respiratory: Airway is patent Respiratory effort is even, unlabored, Respiratory pattern is regular, symmetrical, Breath sounds are clear bilaterally. Denies cough, shortness of breath pain with respiration, pain with cough, pain with movement. GI: Patient currently denies nausea, vomiting. : No signs and/or symptoms were reported regarding the genitourinary system. EENT: Nares are clear Oral mucosa is moist. Derm: Skin is intact, is healthy with good turgor, Skin is dry, Skin is pink, warm \T\ dry. normal, Rash noted that is itchy, red, on back, chest, abdomen, right arm, left arm, right leg and left leg. Musculoskeletal: Range of motion: intact in all extremities. 11:00 Reassessment: Patient appears in no apparent distress at this time. Patient and/or ss family updated on plan of care and expected duration. Pain level reassessed. Patient is alert, oriented x 3, equal unlabored respirations, skin warm/dry/pink. Patient states feeling better. Patient states symptoms have improved. Vital Signs: 10:04 BP 141 / 95; Pulse 80; Resp 17 S; Temp 98.6(TE); Pulse Ox 98% on R/A; Weight 65.77 kg; sg Pain 1010; ED Course: 09:51 Patient arrived in ED. as 10:04 Triage completed. sg 10:04 Arm band placed on. sg 10:10 Jam Nixon PA is PHCP. jr8 10:10 Valentin Otto MD is Attending Physician. jr8 10:29 Yvonne Boyd RN is Primary Nurse. ss 10:59 No provider procedures requiring assistance completed. Patient did not have IV access ss during this emergency room visit. 11:00 Patient has correct armband on for positive identification. Bed in low position. ss Administered Medications: 10:29 Drug: SOLU-Medrol 125 mg Route: IM; Site: right gluteus; ss 10:59 Follow up: Response: No adverse reaction; Marked relief of symptoms ss 10: Drug: Benadryl 25 mg Route: IM; Site: right deltoid; ss 10:59 Follow up: Response: No adverse reaction; Marked relief of symptoms ss Outcome: 10:53 Discharge ordered by MD. britt 10:59 Discharged to home ambulatory, with significant other. ss 10:59 Condition: good 10:59 Discharge instructions given to patient, family, Instructed on discharge instructions, follow up and referral plans. medication usage, Demonstrated understanding of instructions, follow-up care, medications, Prescriptions given X 1. 11:00 Patient left the ED. ss Signatures: Jose A Hastings RN RN Betzaida Lorenzo Shelby, RN RN Jam Nixon PA PA jr8 Corrections: (The following items were deleted from the chart) 10:23 10:20 Derm: Skin is intact, is healthy with good turgor, Skin is dry, Skin is pink, ss warm \T\ dry. normal, ss
--- NOTE | 2018-04-04 10:54 | EDPHYS ---
Physician Documentation [facility] Name: Shanelle Goldstein Age: 47 yrs Sex: Female : 1970 Arrival Date: 04/04/2018 Time: 09:51 Bed 24 Private MD: ED Physician Valentin Otto HPI: 04/04 10:23 This 47 yrs old Black Female presents to ER via Ambulatory with complaints of Hives. jr8 10:23 Onset: The symptoms/episode began/occurred gradually, today. Associated signs and jr8 symptoms: Pertinent negatives: chest pain, cough, headache, shortness of breath, wheezing. Modifying factors: The patient symptoms are alleviated by nothing, the patient symptoms are aggravated by nothing. The patient has experienced a previous episode. The patient has not recently seen a physician. Patient stated that while at work started to have rash and itch. Stated that she has had this once before and was from outside exposure from dust. 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 - Social history:: Smoking status: . - Ebola Screening: : Patient negative for fever greater than or equal to 101.5 degrees Fahrenheit, and additional compatible Ebola Virus Disease symptoms Patient denies exposure to infectious person Patient denies travel to an Ebola-affected area in the 21 days before illness onset No symptoms or risks identified at this time. ROS: 10:23 Eyes: Negative for injury, pain, redness, and discharge, ENT: Negative for injury, jr8 pain, and discharge, Neck: Negative for injury, pain, and swelling, Cardiovascular: Negative for chest pain, palpitations, and edema, Respiratory: Negative for shortness of breath, cough, wheezing, and pleuritic chest pain, Abdomen/GI: Negative for abdominal pain, nausea, vomiting, diarrhea, and constipation, Back: Negative for injury and pain, MS/Extremity: Negative for injury and deformity, Neuro: Negative for headache, weakness, numbness, tingling, and seizure. 10:23 Skin: Positive for rash. Exam: 10:23 Head/Face: Normocephalic, atraumatic. Eyes: Pupils equal round and reactive to light, jr8 extra-ocular motions intact. Lids and lashes normal. Conjunctiva and sclera are non-icteric and not injected. Cornea within normal limits. Periorbital areas with no swelling, redness, or edema. ENT: Nares patent. No nasal discharge, no septal abnormalities noted. Tympanic membranes are normal and external auditory canals are clear. Oropharynx with no redness, swelling, or masses, exudates, or evidence of obstruction, uvula midline. Mucous membranes moist. Neck: Trachea midline, no thyromegaly or masses palpated, and no cervical lymphadenopathy. Supple, full range of motion without nuchal rigidity, or vertebral point tenderness. No Meningismus. Cardiovascular: Regular rate and rhythm with a normal S1 and S2. No gallops, murmurs, or rubs. Normal PMI, no JVD. No pulse deficits. Respiratory: Lungs have equal breath sounds bilaterally, clear to auscultation and percussion. No rales, rhonchi or wheezes noted. No increased work of breathing, no retractions or nasal flaring. Abdomen/GI: Soft, non-tender, with normal bowel sounds. No distension or tympany. No guarding or rebound. No evidence of tenderness throughout. Back: No spinal tenderness. No costovertebral tenderness. Full range of motion. Skin: Warm, dry with normal turgor. Normal color with no rashes, no lesions, and no evidence of cellulitis. MS/ Extremity: Pulses equal, no cyanosis. Neurovascular intact. Full, normal range of motion. Neuro: Awake and alert, GCS 15, oriented to person, place, time, and situation. Cranial nerves II-XII grossly intact. Motor strength 5/5 in all extremities. Sensory grossly intact. Cerebellar exam normal. Normal gait. Vital Signs: 10:04 BP 141 / 95; Pulse 80; Resp 17 S; Temp 98.6(TE); Pulse Ox 98% on R/A; Weight 65.77 kg; sg Pain 10/10; MDM: 10:10 Patient medically screened. jr8 10:23 Data reviewed: vital signs, nurses notes, and as a result, I will discharge patient. jr8 Data interpreted: Pulse oximetry: on room air is 98 %. Interpretation: normal. Counseling: I had a detailed discussion with the patient and/or guardian regarding: the historical points, exam findings, and any diagnostic results supporting the discharge/admit diagnosis, the need for outpatient follow up, a family practitioner, to return to the emergency department if symptoms worsen or persist or if there are any questions or concerns that arise at home. Response to treatment: the patient's symptoms have markedly improved after treatment. ED course: No identifiable rash but patient uncomfortable from itching. Medication helped. Will send home on steroid. Benadryl as needed. . Administered Medications: 10:29 Drug: SOLU-Medrol 125 mg Route: IM; Site: right gluteus; ss 10:59 Follow up: Response: No adverse reaction; Marked relief of symptoms ss 10:29 Drug: Benadryl 25 mg Route: IM; Site: right deltoid; ss 10:59 Follow up: Response: No adverse reaction; Marked relief of symptoms ss Disposition: 15:00 Co-signature as Attending Physician, Valentin Otto MD. rn Disposition: 04/04/18 10:53 Discharged to Home. Impression: Allergic Reaction . - Condition is Stable. - Discharge Instructions: Anaphylactic Reaction. - Prescriptions for Prednisone 20 mg Oral Tablet - take 1 tablet by ORAL route once daily for 5 days; 5 tablet. - Work release form, Family Work Release, Medication Reconciliation Form, Thank You Letter, Antibiotic Education, Prescription Opioid Use form. - Follow up: Private Physician; When: 2 - 3 days; Reason: Recheck today's complaints, Continuance of care, Re-evaluation by your physician. - Problem is new. - Symptoms have improved. - Notes: Benadryl as needed for itching Signatures: Jose A Hastings RN STEVEN Valentin Otto MD MD rn Smirch, Shelby, RN RN ss Roszak, Josh, PA PA jr8 Corrections: (The following items were deleted from the chart) 11:00 10:53 04/04/2018 10:53 Discharged to Home. Impression: Allergic Reaction . Condition is ss Stable. Forms are Medication Reconciliation Form, Thank You Letter, Antibiotic Education, Prescription Opioid Use. Follow up: Private Physician; When: 2 - 3 days; Reason: Recheck today's complaints, Continuance of care, Re-evaluation by your physician. Problem is new. Symptoms have improved. jr8
== END 2018-04-04 11:00 | disposition home or self-care (01) ==
LOC: ER 09:49
DX: T78.49XA Other allergy, initial encounter (principal); I10 Essential (primary) hypertension; X58.XXXA Exposure to other specified factors, initial encounter
CPT/HCPCS: 96372; 99283; J2930

== ENCOUNTER 2018-05-13 10:54 | Emergency (ER) | payer SELFPAY ==
--- NOTE | 2018-05-13 12:24 | EDPHYS ---
Physician Documentation [facility] Name: Shanelle Goldstein Age: 47 yrs Sex: Female : 1970 Arrival Date: 05/13/2018 Time: 10:56 Bed 17 Private MD: None, None ED Physician Dustin Campbell HPI: 05/13 12:21 This 47 yrs old Black Female presents to ER via Ambulatory with complaints of knee kb swelling. 12:22 The patient presents with an injury, pain, that is acute, swelling, tenderness. The kb complaints affect the left knee. Context: The problem was sustained outdoors, resulted from twisting of the extremity, the patient can fully bear weight, the patient is able to ambulate, Problem is a result from a previous injury: No. Onset: The symptoms/episode began/occurred 2 week(s) ago. Modifying factors: The symptoms are alleviated by nothing. the symptoms are aggravated by nothing. Associated signs and symptoms: Pertinent positives: swelling, Pertinent negatives calf tenderness, fever, nausea, numbness, rash, tingling, vomiting, warmth, weakness. Treatment prior to arrival includes: no previous treatment. Severity of symptoms: At their worst the symptoms were moderate, in the emergency department the symptoms are unchanged. The patient has not experienced similar symptoms in the past. The patient has not recently seen a physician. Pt states she felt like she pulled something in her knee when walking up a steep driveway 2 weeks ago. States it has been swelling intermittently since then. Fell and bruised the same knee today. . 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 - Social history:: Smoking status: Patient/guardian denies using tobacco. - Ebola Screening: : Patient negative for fever greater than or equal to 101.5 degrees Fahrenheit, and additional compatible Ebola Virus Disease symptoms Patient denies exposure to infectious person Patient denies travel to an Ebola-affected area in the 21 days before illness onset No symptoms or risks identified at this time. ROS: 12:19 Constitutional: Negative for fever, chills, and weight loss, Cardiovascular: Negative kb for chest pain, palpitations, and edema, Respiratory: Negative for shortness of breath, cough, wheezing, and pleuritic chest pain, Abdomen/GI: Negative for abdominal pain, nausea, vomiting, diarrhea, and constipation, Skin: Negative for injury, rash, and discoloration, Neuro: Negative for headache, weakness, numbness, tingling, and seizure. 12:19 MS/extremity: Positive for injury or acute deformity, pain, swelling, tenderness. Exam: 12:19 Constitutional: This is a well developed, well nourished patient who is awake, alert, kb and in no acute distress. Head/Face: Normocephalic, atraumatic. Chest/axilla: Normal chest wall appearance and motion. Nontender with no deformity. No lesions are appreciated. Cardiovascular: Regular rate and rhythm with a normal S1 and S2. No gallops, murmurs, or rubs. Normal PMI, no JVD. No pulse deficits. Respiratory: Lungs have equal breath sounds bilaterally, clear to auscultation and percussion. No rales, rhonchi or wheezes noted. No increased work of breathing, no retractions or nasal flaring. Abdomen/GI: Soft, non-tender, with normal bowel sounds. No distension or tympany. No guarding or rebound. No evidence of tenderness throughout. Skin: Warm, dry with normal turgor. Normal color with no rashes, no lesions, and no evidence of cellulitis. Neuro: Awake and alert, GCS 15, oriented to person, place, time, and situation. Cranial nerves II-XII grossly intact. Motor strength 5/5 in all extremities. Sensory grossly intact. Cerebellar exam normal. Normal gait. 12:19 Musculoskeletal/extremity: Extremities: grossly normal except: noted in the left knee: contusion, pain, swelling, tenderness, ROM: intact in all extremities, Weight bearing: able to fully bear weight, without difficulty. Vital Signs: 11:27 BP 141 / 89; Pulse 70; Resp 18; Temp 99; Pulse Ox 99% on R/A; Weight 74.84 kg; Height 5 ch ft. 7 in. (170.18 cm); Pain 10/10; 11:27 Body Mass Index 25.84 (74.84 kg, 170.18 cm) MDM: 11:16 Patient medically screened. kb 12:19 Data reviewed: vital signs, nurses notes. Data interpreted: Pulse oximetry: on room air kb is 99 %. Interpretation: normal. Counseling: I had a detailed discussion with the patient and/or guardian regarding: the historical points, exam findings, and any diagnostic results supporting the discharge/admit diagnosis, radiology results, the need for outpatient follow up, a orthopedic surgeon, to return to the emergency department if symptoms worsen or persist or if there are any questions or concerns that arise at home. 05/13 11:20 Order name: Knee Left 3 View XRAY kb 05/13 12:18 Order name: Crutches kb 05/13 12:18 Order name: Knee Immobilizer Administered Medications: No medications were administered Disposition: 05/13/18 12:24 Discharged to Home. Impression: Pain in left knee. - Condition is Stable. - Discharge Instructions: Knee Pain, [id number]. - Prescriptions for Diclofenac Sodium 75 mg Oral Tablet Sustained Release - take 1 tablet by ORAL route 2 times per day; 30 tablet. - Medication Reconciliation Form, Thank You Letter, Antibiotic Education, Prescription Opioid Use, Work release form form. - Follow up: Emergency Department; When: As needed; Reason: Worsening of condition. Follow up: Private Physician; When: 2 - 3 days; Reason: Recheck today's complaints, Continuance of care, Re-evaluation by your physician. Signatures: Dispatcher [employer] Sandra Caraballo, LAURO-Collin CARBAJALP-Marcia Staton RN RN ch Corrections: (The following items were deleted from the chart) 12:54 12:24 05/13/2018 12:24 Discharged to Home. Impression: Pain in left knee. Condition is ch Stable. Forms are Medication Reconciliation Form, Thank You Letter, Antibiotic Education, Prescription Opioid Use. Follow up: Emergency Department; When: As needed; Reason: Worsening of condition. Follow up: Private Physician; When: 2 - 3 days; Reason: Recheck today's complaints, Continuance of care, Re-evaluation by your physician. kb
--- NOTE | 2018-05-13 12:24 | ER ---
Nurse's Notes [facility] Name: Shanelle Goldstein Age: 47 yrs Sex: Female : 1970 Arrival Date: 05/13/2018 Time: 10:56 Bed 17 Private MD: None, None Diagnosis: Pain in left knee Presentation: 05/13 11:14 Presenting complaint: Patient states: knee swelling and pain for 2 weeks, states i ch pulled my knee two weeks ago and then I fell yeterday . it is swelling a lot. Transition of care: patient was not received from another setting of care. Onset of symptoms was March 2018. Risk Assessment: Do you want to hurt yourself or someone else? Patient reports no desire to harm self or others. Initial Sepsis Screen: Does the patient meet any 2 criteria? No. Patient's initial sepsis screen is negative. Does the patient have a suspected source of infection? No. Patient's initial sepsis screen is negative. Care prior to arrival: Goody powder taken this morningt. 11:14 Method Of Arrival: Ambulatory 11:14 Acuity: MOE 4 Triage Assessment: 11:27 General: Appears in no apparent distress. comfortable, Behavior is calm, cooperative, ch appropriate for age. Pain: Complains of pain in medial aspect of left knee and left knee. 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 - Social history:: Smoking status: Patient/guardian denies using tobacco. - Ebola Screening: : Patient negative for fever greater than or equal to 101.5 degrees Fahrenheit, and additional compatible Ebola Virus Disease symptoms Patient denies exposure to infectious person Patient denies travel to an Ebola-affected area in the 21 days before illness onset No symptoms or risks identified at this time. Screenin:29 Abuse screen: Denies threats or abuse. Denies injuries from another. Nutritional ch screening: No deficits noted. Tuberculosis screening: No symptoms or risk factors identified. Fall Risk None identified. Assessment: 11:29 Reassessment: Patient appears in no apparent distress at this time. Patient and/or ch family updated on plan of care and expected duration. Pain level reassessed. Patient is alert, oriented x 3, equal unlabored respirations, skin warm/dry/pink. Vital Signs: 11:27 BP 141 / 89; Pulse 70; Resp 18; Temp 99; Pulse Ox 99% on R/A; Weight 74.84 kg; Height 5 ch ft. 7 in. (170.18 cm); Pain 10/10; 12:50 BP 136 / 78; Pulse 81; Resp 16; Temp 98.3; Pulse Ox 99% on R/A; Pain 8/10; ch 11:27 Body Mass Index 25.84 (74.84 kg, 170.18 cm) ED Course: 10:56 Patient arrived in ED. mr 10:57 None, None is Private Physician. mr 11:11 Marcia Ocampo, STEVEN is Primary Nurse. ch 11:15 Triage completed. 11:16 [facility]C [facility]. kb 11:16 Dustin Campbell MD is Attending Physician. kb 11:27 Arm band placed on right wrist. Patient placed in an exam room, on a stretcher. 11:29 No apparent distress. Resting quietly. 11:29 Patient has correct armband on for positive identification. Bed in low position. Call light in reach. Side rails up X 1. Adult w/ patient. Pulse ox on. NIBP on. 11:29 No provider procedures requiring assistance completed. Patient did not have IV access during this emergency room visit. 11:40 X-ray completed. Portable x-ray completed in exam room. Patient tolerated procedure ml well. 11:42 Knee Left 3 View XRAY In Process Unspecified. EDMS 12:50 Crutch training done. Knee immobilizer applied on left knee. Administered Medications: No medications were administered Outcome: 12:24 Discharge ordered by . kb 12:50 Discharged to home ambulatory, with crutches, with family. 12:50 Condition: stable 12:50 Discharge instructions given to patient, family, Instructed on discharge instructions, follow up and referral plans. medication usage, crutch walking, Demonstrated understanding of instructions, follow-up care, medications, crutch walking, Prescriptions given X 1. 12:54 Patient left the ED. ch Signatures: Dispatcher [employer] Sandra Caraballo, JENI RESTREPO-Marcia Staton, RN Amy Villalta ch, Luisa cedillo
--- NOTE | 2018-05-13 13:22 | RAD REPORT ---
EXAM DESCRIPTION: RAD - Knee Left 3 View - 05/13/2018 11:49 am CLINICAL HISTORY: Left knee pain following fall yesterday, knee swelling for 2 weeks COMPARISON: None. FINDINGS: No fracture, dislocation or periosteal reaction.Trace amount of fluid in the joint space. No joint space narrowing. Concavity of the lateral tibial plateau is not outside of normal range. No tibial plateau depression or other evidence for acute bone process. No air or foreign body in the soft tissues. IMPRESSION: No acute bone or joint finding confirmed. Trace amount of fluid present in the joint spa ce. Clinical concerns for internal derangement or occult bony injury could be further assessed with MR im aging.
== END 2018-05-13 12:54 | disposition home or self-care (01) ==
LOC: ER 10:54
DX: M25.562 Pain in left knee (principal); I10 Essential (primary) hypertension; F41.9 Anxiety disorder, unspecified
CPT/HCPCS: 99284